=== PATIENT | female | born 1960 | race Asian ===

== ENCOUNTER 2016-10-19 08:32 | Observation (INO) | payer OTHER ==
[~2016-10-19] VITALS: Ht 167.6 cm; Wt 88.0 kg
[~2016-10-19 08:32] MED LIST: COZAAR100 MG PO
[2016-10-19 08:35] VITALS: BP 188/110; TEMP 97.4
[2016-10-19] MEDS ORDERED: TRAM50TA PO (08:45)
[2016-10-19 09:39] LABS: PLATELET COUNT 251 K/uL (152-353)
[2016-10-19 10:10] LABS: POTASSIUM 3.6 mmol/L (3.6-5.2); SODIUM 140 mmol/L (136-145)
--- NOTE | 2016-10-19 13:40 | NUR ---
RECEIVED REPORT FROM TRI CUMMINGS LPN
--- NOTE | 2016-10-19 14:31 | NUR ---
PT ARRIVED VIA WHEELCHAIR TO ROOM AT THIS TIME. PT ORIENTED TO ROOM. NAD NOTED. PT ALERT AND ORIENTED.
[2016-10-19 14:35] VITALS: BP 159/82; TEMP 98.1; Ht 167.6 cm; Wt 88.0 kg
[2016-10-19] MEDS ORDERED: DIOVAN HCT320 MG/25 PO (14:57)
[2016-10-19 16:00] VITALS: BP 159/82; TEMP 98.1
[2016-10-19 19:44] LABS: POTASSIUM 3.2 mmol/L (3.6-5.2); SODIUM 139 mmol/L (136-145)
[2016-10-19 20:00] VITALS: BP 144/94; TEMP 97.4
[2016-10-20] VITALS: BP 146/91; TEMP 97.9
[2016-10-20 04:00] VITALS: BP 136/90; TEMP 97.7
[2016-10-20 05:46] LABS: PLATELET COUNT 223 K/uL (152-353)
[2016-10-20 06:03] LABS: POTASSIUM 3.2 mmol/L (3.6-5.2); SODIUM 139 mmol/L (136-145)
[2016-10-20 08:21] VITALS: BP 158/68; TEMP 98
[2016-10-20 12:00] VITALS: BP 150/89; TEMP 97.9
--- NOTE | 2016-10-20 14:30 | NUR ---
PT INFORMED MYSELF AND PCT THAT SHE IS NOT GOING TO HAVE GALLBLADDER TAKEN OUT WHILE IS NOT HERE AND SHE HAS NOT DISCUSSED IT WITH HIM. INFORMED HER THAT I WILL MAKE MDS AWARE.
--- NOTE | 2016-10-20 15:00 | NUR ---
INFORMED HECTOR SOTO RN WITH DR PALUMBO THAT PT IS REFUSING DR SMART TO DO SURGERY ON HER AND THAT SHE IS NOT GOING TO HAVE IT DONE UNTIL SHE DISCUSS IT WITH HER .
--- NOTE | 2016-10-20 17:00 | NUR ---
IN PT'S ROOM WITH MEDICATION. PT STATING GOING TO GET SHOWER. INFORMED HER I HAVE D/C INSTRUCTIONS READY. PT STATED WILL GET SHOWER THEN BE READY TO GO HOME. INFORMED HER MEDICATIONS TO GO HOME WITH WAS CALLED INTO PHARMACY BY HECTOR SOTO RN WITH DR PALUMBO.
--- NOTE | 2016-10-20 17:27 | NUR ---
D/C INSTRUCTIONS GIVEN TO PT. PT VERBALIZED UNDERSTANDING. PT AMBULATORY TO VEHICLE WITH FAMILY ASSIST.
== END 2016-10-20 18:00 | disposition home or self-care (01) ==
LOC: ED 08:32 → MED/SURG 13:04
PROVIDERS: Internal Medicine; ADMIT Specialist
DX: K80.50 Calculus of bile duct without cholangitis or cholecystitis without obstruction (principal); R10.13 Epigastric pain; R51 Headache
CPT/HCPCS: 36415; 80053; 81000; 82150; 83690; 85027; 94760; 96360; 96365; 96366; 96372; 96375; 96376; 99220; 99284; G0378; J1170; J1644; J2175; J2405; J2550; J3490

== ENCOUNTER 2017-02-04 08:17 | Outpatient (CLI) | payer BC ==
[~2017-02-04 08:17] MED LIST changes: +DIOVAN HCT320 MG/25 PO; +TRAM50TA PO
[2017-02-04 09:59] LABS: POTASSIUM 3.9 mmol/L (3.6-5.2); SODIUM 139 mmol/L (136-145)
[2017-02-04 10:01] LABS: PLATELET COUNT 275 K/uL (152-353)
== END 2017-02-04 19:10 | disposition home or self-care (01) ==
LOC: RAD 08:17 → LABW 08:17 → RAD 19:10
PROVIDERS: Family Medicine
DX: R53.83 Other fatigue (principal); M79.89 Other specified soft tissue disorders; Z82.49 Family history of ischemic heart disease and other diseases of the circulatory system; E55.9 Vitamin D deficiency, unspecified; E78.00 Pure hypercholesterolemia, unspecified
CPT/HCPCS: 36415; 80053; 80061; 81000; 82043; 82306; 82550; 82570; 84439; 84443; 84484; 85027; 93005